=== PATIENT | female | born 1980 ===

== ENCOUNTER → 2017-01-25 | Outpatient (REF) | payer OTHER | LOC: M LAB REF 17:16 | PROVIDERS: ATTEND Obstetrics & Gynecology | DX: Z34.83 Encounter for supervision of other normal pregnancy, third trimester (principal); Z36 Encounter for antenatal screening of mother; Z3A.00 Weeks of gestation of pregnancy not specified ==

== ENCOUNTER 2017-02-20 15:15 | Inpatient (IN) | payer MEDICAID, OTHER ==
[2017-02-20] VITALS (17 sets, daily range): BP systolic 106–130; BP diastolic 66–84
[~2017-02-20] VITALS: Ht 154.9 cm; Wt 66.0 kg
[2017-02-20] MEDS ORDERED: PRE-TAB3 PO (15:28)
[2017-02-20] MEDS ORDERED: LABE20TAB PO (15:28)
[2017-02-20] MEDS ORDERED: LR 1,000 ML IV SCH (16:00)
[2017-02-20] MEDS ORDERED: LR 800 ML IV ONE (16:00)
[2017-02-20 16:14] LABS: MEAN CORPUSCULAR HEMOGLOBIN 30.8 pg (27.0-33.0); MEAN CORPUSCULAR HGB CONC 33.6 g/dl (32.0-36.5); MEAN CORPUSCULAR VOLUME 91.6 fl (80.0-96.0); RED CELL DISTRIBUTION WIDTH 14.2 % (11.5-14.5); WHITE BLOOD COUNT 13.4 K/mm3 (4.0-10.0)
[2017-02-20] MEDS ORDERED: OXYTOCIN DRIP 30 UNITS in APPROPRIATE DILUENT 1 EA IV SCH (19:00)
[2017-02-20 19:34] LABS: ALT/SGPT 21 U/L (12-78); AST/SGOT 15 U/L (15-37); BILIRUBIN,TOTAL 0.2 MG/DL (0.2-1.0); GLOMERULAR FILTRATION RATE > 60.0 (>60); URIC ACID 4.4 MG/DL (2.6-6.0)
[2017-02-21] VITALS (20 sets, daily range): BP systolic 117–161; BP diastolic 70–96
[2017-02-21] MEDS ORDERED: OXYTOCIN DRIP 30 UNITS in APPROPRIATE DILUENT 1 EA IV SCH (08:56)
[2017-02-21] MEDS ORDERED: IBUPROFEN 800 MG TAB PO PRN (09:00)
[2017-02-21] MEDS ORDERED: DIBUCAINE 1% OINTMENT 30GM TOP PRN (09:00)
[2017-02-21] MEDS ORDERED: RHOGAM 300 MCG (1500 IU) INJ (J2790) IM SCH (09:00)
[2017-02-21] MEDS ORDERED: DOCUSATE SODIUM 100 MG CAP PO PRN (09:00)
[2017-02-21] MEDS ORDERED: METHYLERGONOVINE MALEATE 0.2 MG TAB PO PRN (09:00)
[2017-02-21] MEDS ORDERED: MEASLES,MUMPS,RUBELLA VACCINE INJ (MMR-II) (90707) SC SCH (09:00)
[2017-02-21] MEDS: PRENATAL VITAMIN TAB PO SCH (09:00)
[2017-02-21] MEDS: LABETALOL 200 MG TAB PO SCH ×2 (09:00→21:20)
[2017-02-21] MEDS ORDERED: ACETAMINOPHEN 500 MG TAB PO PRN (09:00)
[2017-02-21] MEDS ORDERED: ANUSOL HC CREAM 30GM TOP PRN (09:00)
--- NOTE | 2017-02-21 10:20 | HPE ---
DATE OF ADMISSION: 02/20/2017 Marcia is a 36-year-old female 6, para 3-0-2-3 with an estimated date of confinement (EDC) of 02/20/2017, estimated gestational age 40 weeks gestation. The patient has a history of chronic hypertension. She is being admitted today for an elective induction. Upon admission, no bleeding. No leakage of fluid. No headache. No blurred vision. No right upper quadrant pain. Good movement. Her record was reviewed. The patient is a chronic hypertensive who has been on labetalol 200 mg twice a day. She has been well controlled. HISTORY: She has had three vaginal deliveries at 39 weeks without any complications. weight ranges from 6 pounds 1 ounce to 6 pounds 13 ounces. PAST MEDICAL HISTORY: Significant for chronic hypertension and migraines. PAST SURGICAL HISTORY: Dilatation and curettage. SOCIAL HISTORY: She denies any alcohol, drug or cigarette smoking. She is . The patient was a former smoker. She quit back in 2013. MEDICATIONS: vitamin and labetalol ALLERGIES: No known drug allergies. PHYSICAL EXAMINATION ON ADMISSION Normal-appearing female in no acute distress. ABDOMEN: Soft, nontender, nondistended. EXTREMITIES: No clubbing, cyanosis or edema. Vaginal exam: Fingertip to 1 cm dilated, 60% effaced, fetus in vertex position. Category 1 tracing. ASSESSMENT: 1. Intrauterine at 40 weeks gestation. 2. Chronic hypertension being admitted for induction. PLAN: Admit to labor and delivery. Routine lab and pre-eclamptic profile sent. Induction process discussed with the patient, as well as pain management. We will consider Pitocin induction given that Cervidil is not available at our hospital. Misoprostol induction also discussed with the patient, and we decided to proceed with the Pitocin induction.
--- NOTE | 2017-02-21 17:50 | DN ---
DATE OF DELIVERY: 02/21/2017 Marcia is a 36-year-old female, advanced maternal age, with a history of chronic hypertension who presented at 40 weeks gestation for induction. She underwent Pitocin induction. Progressed to fully dilated, had artificial rupture of membrane, delivered a live female infant in right occiput anterior position over an intact perineum. scores 9 and 10. Placenta delivered spontaneously intact. Three-vessel cord. Perineum, vagina, cervix inspected. No laceration noted. Estimated blood loss 300 mL. Both mother and baby in stable condition.
[2017-02-22 06:14] VITALS: BP 116/78
[2017-02-22 07:18] LABS: MEAN CORPUSCULAR HEMOGLOBIN 31.6 pg (27.0-33.0); MEAN CORPUSCULAR HGB CONC 33.8 g/dl (32.0-36.5); MEAN CORPUSCULAR VOLUME 93.6 fl (80.0-96.0); RED CELL DISTRIBUTION WIDTH 14.2 % (11.5-14.5); WHITE BLOOD COUNT 17.3 K/mm3 (4.0-10.0)
[2017-02-22 07:46] LABS: ALT/SGPT 19 U/L (12-78); AST/SGOT 25 U/L (15-37); BILIRUBIN,TOTAL 0.3 MG/DL (0.2-1.0); CREATININE FOR GFR 0.47 MG/DL (0.55-1.02); GLOMERULAR FILTRATION RATE > 60.0 (>60); URIC ACID 4.7 MG/DL (2.6-6.0)
[2017-02-22] MEDS: PRENATAL VITAMIN TAB PO SCH (09:31)
[2017-02-22] MEDS: LABETALOL 200 MG TAB PO SCH ×2 (09:32→21:09)
[2017-02-22 17:30] VITALS: BP 137/90
[2017-02-23 05:36] VITALS: BP 130/90
[2017-02-23 08:31] VITALS: BP 166/94
[2017-02-23] MEDS: PRENATAL VITAMIN TAB PO SCH (08:31)
[2017-02-23] MEDS: LABETALOL 200 MG TAB PO SCH (08:31)
[2017-02-23] MEDS ORDERED: medroxyPROGESTERone ACET IM SUSP 150 MG/ML VIAL (J1050) IM ONE (08:45)
[2017-02-23] MEDS ORDERED: IBUP-1114 PO (09:51)
== END 2017-02-23 11:40 | disposition home or self-care (01) | DRG 774 ==
LOC: M LDI 15:15 → M OBS 02-21 12:07
PROVIDERS: ADMIT Obstetrics & Gynecology; ATTEND Obstetrics & Gynecology
PROC: 3E033VJ Introduction of Other Hormone into Peripheral Vein, Percutaneous Approach (ICD-10-PCS; 2017-02-20)
PROC: 10E0XZZ Delivery of Products of Conception, External Approach (ICD-10-PCS; principal; 2017-02-21)
PROC: 10907ZC Drainage of Amniotic Fluid, Therapeutic from Products of Conception, Via Natural or Artificial Opening (ICD-10-PCS; 2017-02-21)
DX: O10.02 Pre-existing essential hypertension complicating childbirth (principal); O99.354 Diseases of the nervous system complicating childbirth; G43.909 Migraine, unspecified, not intractable, without status migrainosus; Z87.891 Personal history of nicotine dependence; Z79.899 Other long term (current) drug therapy; O48.0 Post-term pregnancy; Z37.0 Single live birth; Z3A.40 40 weeks gestation of pregnancy